=== PATIENT | female | born 1985 | race African-American/Black ===

== ENCOUNTER → 2016-08-13 | Day surgery (SDC) | payer OTHER ==
--- NOTE | 2016-08-13 14:12 | Operative Report ---
Operative/Inv Procedure Report Surgery Date: 08/13/16 Name of Procedure: Incision and drainage of left axillary abscess Pre-Operative Diagnosis: Left axillary abscess Post-Operative Diagnosis: Same Estimated Blood Loss: less than 50ml Surgeon/Patient Resource Coordinator: PEEWEE GUNDERSON MD Anesthesia: local monitored anesthesi Specimens: 1. Culture 2. Debris Complications: None Condition: Stable to recovery room Operative Indication: Patient is a healthy 30-year-old woman with previous history of hidradenitis suppurativa in her groins who presents with a large extremely painful left axillary abscess. Patient was started on oral antibiotics by her primary care doctor. She refused I&D in the office due to extreme tenderness. All risks benefits and alternatives of the procedure were explained to patient in detail, and she expressed understanding and agreement with the same. Operative/Procedure Note Note: Patient was taken to the operating room and placed in supine position on the operating table. All pressure points were appropriately padded and the patient was secured to the operating table. Anesthesia was established by anesthesia team. The left axilla was prepped and draped in standard surgical fashion. The timeout was carried out. A cruciate incision was made at the point of most fluctuance in the left axilla. Carpus amounts of purulent material were expressed. Part of the purulent material was sent for culture. There was some debris expressed from the abscess cavity. The debris was sent to pathology. The abscess appeared to contain approximately 70 mL of purulent material. The abscess cavity was copiously irrigated with sterile warm irrigating fluid. Hemostasis was achieved with packing. The skin edges were touched with electrocautery. Once hemostasis was established, the wound was packed with half an inch iodoform packing strip. Pressure dressing was applied. The sponge and instrument counts were correct in the end of procedure. The patient tolerated procedure well, was wakened up and taken to recovery room in stable condition. Findings: Large left axillary abscess cavity with 70 mL of purulent material and debris Discharge Disposition: home
== END ==
LOC: STS 02:39
DX: L02.412 Cutaneous abscess of left axilla (principal); M79.629 Pain in unspecified upper arm; H16.8 Other keratitis
CPT/HCPCS: 87070; 87075; 81025; 87071; 87147; 88304; J0690; J2250